=== PATIENT | male | born 1980 | race Caucasian/White ===

== ENCOUNTER 2017-06-30 21:34 | Emergency (ER) | payer BC ==
[2017-06-30 21:49] VITALS: BP 123/72
--- NOTE | 2017-06-30 21:50 | UC ---
Skin Complaint HPI - HPI Summary HPI Summary: 36 M with foot pain. Has had pain about 2 mo ago and gf dug out a sliver had some discharge at that time but not at this time. no fever. got the sliver out but still with some pain . has been walking on it and pain with walking and pushing on the area. no redness any more. no discharge in the past month. has not seen PCP for this. - History of Current Complaint Time Seen by Provider: 06/30/17 21:47 Stated Complaint: RIGHT FOOT PAIN Hx Obtained From: Patient Onset/Duration: Gradual Onset - Allergy/Home Medications Allergies/Adverse Reactions: Allergies Allergy/AdvReac Type Severity Reaction Status Date / Time MS Penicillins [Penicillins] Allergy Mild bruising Verified 06/30/17 21:49 pollen Allergy Congestion Uncoded 06/30/17 21:49 Home Medications: Home Medications NK [No Home Medications Reported] 06/30/17 [History Confirmed 06/30/17] Review of Systems Musculoskeletal: Arthralgia - right base of foot All Other Systems Reviewed And Are Negative: Yes PMH/Surg Hx/FS Hx/Imm Hx Previously Healthy: Yes Other History Of: Negative For: HIV, Hepatitis B, Hepatitis C, Anticoagulant Therapy - Surgical History Surgical History: None - Family History Known Family History: Negative: Cardiac Disease, Hypertension - Social History Occupation: Employed Full-time Lives: With Family Alcohol Use: Occasionally Substance Use Type: None Smoking Status (MU): Former Smoker - He Type: Smokeless Tobacco Amount Used/How Often: 1/3 Can Per Day Length of Time of Smoking/Using Tobacco: 18 Years Have You Smoked in the Last Year: Yes When Did the Patient Quit Smoking/Using Tobacco: 5-6 years ago- quit chewing 1 yr ago - Immunization History Most Recent Tetanus Shot: 2008 Physical Exam Triage Information Reviewed: Yes Appearance: Well-Appearing, No Pain Distress, Well-Nourished Vital Signs Reviewed: Yes Eyes: Positive: Conjunctiva Clear ENT: Positive: Hearing grossly normal Respiratory: Positive: No respiratory distress Skin: Positive: Other - right heel medial with raised corn and tender to palpation Course/Dx - Course Course Of Treatment: treat at home with pummice and corn / callous donut and go to podiatry if any concerns. - Diagnoses Provider Diagnoses: right heel corn/callous Discharge - Discharge Plan Condition: Good Disposition: HOME Referrals: Jonny Wu DPM [Doctor of Podiatric Medicine] - ([employer] referral ) No Primary Care Phys,NOPCP [Primary Care Provider] - Additional Instructions: You appear to have a plantar corn at this time. We advise to use Dr Chidi Seals and Callous treatment at this time and if your symptoms do not improve to see a can reconditioner .
== END 2017-06-30 21:59 | disposition home or self-care (01) ==
LOC: UCCORT 21:34
DX: L84 Corns and callosities (principal); M79.671 Pain in right foot; Z88.0 Allergy status to penicillin; Z87.891 Personal history of nicotine dependence
CPT/HCPCS: 99211; G0463